=== PATIENT | female | born 1960 | race African-American/Black ===

== ENCOUNTER 2016-09-18 17:08 | Emergency (ER) | payer MEDICAID ==
[~2016-09-18] VITALS: Ht 167.6 cm; Wt 106.6 kg
--- NOTE | 2016-09-18 17:33 | Emergency Room Report ---
History of Present Illness General Chief Complaint: Dizziness Source: Patient, EMS Present Illness HPI Patient states that for the past 2 days she has been lightheaded. She states it this is worse when she stands up. She states that she's also had some chest pressure. She chest pain. She denies nausea or vomiting. She denies headache. She denies blurry vision. She denies abdominal pain. She denies recent illness. She denies fever or chills. She has no other complaints. She does admit to a one pack-a-day tobacco use and moderate alcohol use daily. She denies illicit drug use. Allergies: Coded Allergies: No Known Allergies (Unverified , 09/18/16) Patient History Past Medical History: see triage record, HTN Social History: Reports: alcohol use, smoking, Denies: drug use Reviewed Nursing Documentation: PMH: Agreed, PSxH: Agreed Nursing Documentation-PMH Past Medical History: No History, Except For Hx Hypertension: Yes Review of Systems All Other Systems: negative except mentioned in HPI Physical Exam Vital Signs Date Time Temp Pulse Resp B/P Pulse Ox O2 Delivery O2 Flow Rate FiO2 09/18/16 17:06 98.4 138 16 117/69 96 Room Air Sp02 EP Interpretation: reviewed, normal General Appearance: no apparent distress, alert, GCS 15, non-toxic Head: normocephalic, atraumatic Eyes: bilateral eye PERRL, bilateral eye normal inspection ENT: hearing grossly normal, normal pharynx, no angioedema, normal voice Neck: full range of motion, supple/symm/no masses Respiratory: chest non-tender, lungs clear, normal breath sounds, no respiratory distress, no retraction, no accessory muscle use, speaking full sentences Cardiovascular #1: no edema, tachycardia Gastrointestinal: normal bowel sounds, non tender, soft, non-distended, no guarding, no rebound Rectal: deferred Musculoskeletal: back normal, normal range of motion, non-tender Neurologic: alert, oriented x3, responsive, motor strength/tone normal, sensory intact, speech normal Psychiatric: judgement/insight normal, memory normal, mood/affect normal, no suicidal/homicidal ideation Skin: normal color, no rash, warm/dry, well hydrated Medical Decision Making Diagnostic Impression: Primary Impression: Lightheadedness Additional Impression: Tachycardia ER Course This patient presented with sinus tachycardia in the 130s. She was also lightheaded with presyncope. She's had multiple episodes of this over the past few days. I did only identify a sinus tachycardia. I was concerned about the tobacco history in combination with the lightheadedness and tachycardia so I did obtain a CT of the chest to assess for PE. There is no evidence of PE. There is findings consistent with chronic lung disease. The patient's other laboratory workup shows a slightly elevated creatinine. The patient did respond to aggressive IV fluids but when she went to go to the restroom she had lightheadedness and was symptomatic again. The patient feels unsafe going home. She will be admitted to telemetry for further evaluation, monitoring and treatment. Labs Test 09/18/16 17:17 09/18/16 18:45 White Blood Count 6.1 K/UL (4.8-10.8) Red Blood Count 4.81 M/UL (4.20-5.40) Hemoglobin 13.8 G/DL (12.0-16.0) Hematocrit 41.5 % (37.0-47.0) Mean Corpuscular Volume 86 FL (80-99) Mean Corpuscular Hemoglobin 28.6 PG (27.0-31.0) Mean Corpuscular Hemoglobin Concent 33.2 G/DL (32.0-36.0) Red Cell Distribution Width 15.5 % (11.6-14.8) Platelet Count 297 K/UL (150-450) Mean Platelet Volume 6.7 FL (6.5-10.1) Neutrophils (%) (Auto) 54.5 % (45.0-75.0) Lymphocytes (%) (Auto) 39.6 % (20.0-45.0) Monocytes (%) (Auto) 3.0 % (1.0-10.0) Eosinophils (%) (Auto) 1.1 % (0.0-3.0) Basophils (%) (Auto) 1.8 % (0.0-2.0) Prothrombin Time 9.1 SEC (9.30-11.50) Prothromb Time International Ratio 0.9 (0.9-1.1) Activated Partial Thromboplast Time 23 SEC (23-33) Sodium Level 141 mEQ/L (135-145) Potassium Level 4.4 mEQ/L (3.4-4.9) Chloride Level 102 mEQ/L (98-107) Carbon Dioxide Level 21 mEQ/L (20-30) Anion Gap 18 (5-15) Blood Urea Nitrogen 12 mg/dL (7-23) Creatinine 1.0 mg/dL (0.5-0.9) Estimat Glomerular Filtration Rate 57.1 mL/min (>60) Glucose Level 135 mg/dL (74-106) Calcium Level 9.5 mg/dL (8.6-10.2) Total Bilirubin < 0.2 mg/dL (0.0-1.2) Aspartate Amino Transf (AST/SGOT) 33 U/L (5-40) Alanine Aminotransferase (ALT/SGPT) 21 U/L (3-33) Alkaline Phosphatase 58 U/L (35-104) Total Creatine Kinase 77 U/L (26-140) Creatine Kinase MB < 1.5 ng/mL (< 3.8) Creatine Kinase MB Relative Index Troponin I < 0.30 ng/mL (<=0.30) Pro-B-Type Natriuretic Peptide 21 pg/mL (0-125) Total Protein 6.6 g/dL (6.6-8.7) Albumin 4.1 g/dL (3.5-5.2) Globulin 2.5 g/dL Albumin/Globulin Ratio 1.6 (1.0-2.7) Urine Color Pale yellow Urine Appearance Clear Urine pH 5 (4.5-8.0) Urine Specific [place] 1.020 (1.005-1.035) Urine Protein 1+ (NEGATIVE) Urine Glucose (UA) Negative (NEGATIVE) Urine Ketones 1+ (NEGATIVE) Urine Occult Blood 2+ (NEGATIVE) Urine Nitrite Negative (NEGATIVE) Urine Bilirubin Negative (NEGATIVE) Urine Urobilinogen Normal MG/DL (0.0-1.0) Urine Leukocyte Esterase 2+ (NEGATIVE) Urine RBC 0-2 /HPF (0 - 2) Urine WBC 2-4 /HPF (0 - 2) Urine Squamous Epithelial Cells Moderate /LPF (NONE/OCC) Urine Bacteria Few /HPF (NONE) Urine Opiates Screen Negative (NEGATIVE) Urine Barbiturates Screen Negative (NEGATIVE) Phencyclidine (PCP) Screen Negative (NEGATIVE) Urine Amphetamines Screen Negative (NEGATIVE) Urine Benzodiazepines Screen Negative (NEGATIVE) Urine Cocaine Screen Negative (NEGATIVE) Urine Marijuana (THC) Screen Negative (NEGATIVE) EKG Diagnostic Results Rate: tachycardiac Rhythm: other ST Segments: no acute changes Other Impression S. tachycardia Rhythm Strip Diag. Results EP Interpretation: yes Rate: 120's Rhythm: no PVC's, no ectopy, other Other Impression S.tachycardia Chest X-Ray Diagnostic Results Chest X-Ray Diagnostic Results : Chest X-Ray Ordered: Yes # of Views/Limited/Complete: 1 View Indication: Shortness of Breath Interpretation: no consolidation, no effusion, no pneumothorax, no acute cardiopulmonary disease Impression: No acute disease CT/MRI/US Diagnostic Results CT/MRI/US Diagnostic Results : Imaging Test Ordered: CT Chest Impression No PE. CLD. See official report. Last Vital Signs Date Time Temp Pulse Resp B/P Pulse Ox O2 Delivery O2 Flow Rate FiO2 09/18/16 17:06 98.4 138 16 117/69 96 Room Air Disposition: ADMITTED INPATIENT Condition: Stable PATEL GANT D.O. Sep 18, 2016 17:33
[2016-09-18 17:52] LABS: ALANINE AMINOTRANSFERASE 21 U/L (3-33); ALBUMIN/GLOBULIN RATIO 1.6 (1.0-2.7); ANION GAP 18 (5-15); ASPARTATE AMINO TRANSFERASE 33 U/L (5-40); BASOPHILS % (AUTO) 1.8 % (0.0-2.0); CALCIUM 9.5 mg/dL (8.6-10.2); CARBON DIOXIDE 21 mEQ/L (20-30); CHLORIDE 102 mEQ/L (98-107); EOSINOPHILS % (AUTO) 1.1 % (0.0-3.0); GLOMERULAR FILTRATION RATE 57.1 mL/min (>60); HEMOLYSIS 139; LYMPHOCYTES % (AUTO) 39.6 % (20.0-45.0); MEAN CORPUSCULAR HEMOGLOBIN 28.6 PG (27.0-31.0); MEAN CORPUSCULAR HGB CONC 33.2 G/DL (32.0-36.0); MEAN CORPUSCULAR VOLUME 86 FL (80-99); MEAN PLATELET VOLUME 6.7 FL (6.5-10.1); NEUTROPHILS % (AUTO) 54.5 % (45.0-75.0); PLATELET COUNT 297 K/UL (150-450); POTASSIUM 4.4 mEQ/L (3.4-4.9); RED BLOOD COUNT 4.81 M/UL (4.20-5.40); RED CELL DISTRIBUTION WIDTH 15.5 % (11.6-14.8); SODIUM 141 mEQ/L (135-145); TOTAL PROTEIN 6.6 g/dL (6.6-8.7); TROPONIN I < 0.30 ng/mL (<=0.30); WHITE BLOOD COUNT 6.1 K/UL (4.8-10.8)
[2016-09-18 17:57] LABS: INR 0.9 (0.9-1.1); PROTHROMBIN TIME 9.1 SEC (9.30-11.50)
[2016-09-18 18:00] VITALS: BP 141/86
[2016-09-18 18:03] LABS: CKMB < 1.5 ng/mL (< 3.8)
[2016-09-18] MEDS ORDERED: OPSUMIT10 MG PO (18:31)
[2016-09-18] MEDS ORDERED: ADEMPAS2.5 MG PO (18:31)
[2016-09-18 18:55] LABS: APPEARANCE,URINE CLEAR; KETONES,URINE 1+ (NEGATIVE); LEUKOCYTE ESTERASE ,URINE 2+ (NEGATIVE); NITRITE,URINE NEGATIVE (NEGATIVE); PH,URINE 5 (4.5-8.0); PROTEIN,URINE 1+ (NEGATIVE); UROBILINOGEN,URINE NORMAL MG/DL (0.0-1.0)
[2016-09-18 19:22] LABS: BACTERIA,URINE FEW /HPF; RBC,URINE 0-2 /HPF (0 - 2); SQUAMOUS EPITHELIAL CELL,UR MODERATE /LPF (NONE/OCC)
[2016-09-18 19:45] VITALS: BP 133/59
[2016-09-18 21:48] VITALS: BP 116/66
[2016-09-18 23:15] VITALS: BP 116/66
--- NOTE | 2016-09-19 08:54 | Diagnostic Imaging Report ---
Indication: Chest pain Technique: Continuous helical transaxial imaging of the chest was obtained from the thoracic inlet to the upper abdomen during rapid intravenous contrast administration. Arterial phase of enhancement obtained. Coronal 2-D reformats were also obtained and maximum intensity projection images in multiple planes. Study obtained in a Siemens sensation [address] Total Dose length Product (DLP): [address] Dose Index Volume (CTDIvol): 12.6, 37.9, 44.8 mGy Comparison: None Findings: The pulmonary artery is well opacified and shows no filling defects. The lungs are clear. There is no adenopathy, pleural or pericardial effusions are identified. The aortic dissection or aneurysm identified within the chest. Visualized part of the upper abdomen is unremarkable. Upper abdomen is unremarkable as visualized. The heart is enlarged. Impression: No evidence of pulmonary embolus. Cardiomegaly The CT scanner at [facility] is accredited by the [employer] and the scans are performed using dose optimization techniques as appropriate to a performed exam including Automatic Exposure control.
--- NOTE | 2016-09-19 09:04 | Diagnostic Imaging Report ---
Indication: Headache and dizziness Technique: Contiguous 5 mm thick transaxial imaging of the head obtained in a Siemens Sensation [address] scanner. Soft tissue and bone windows generated. Total Dose length Product (DLP): [address] Dose Index Volume (CTDIvol): 70.38 mGy Comparison: none Findings: There is mild prominence of the cerebral sulci consistent with atrophy particularly within the frontal lobes. . There is no midline shift, edema, acute hemorrhage, mass effect, hydrocephalus or abnormal extra-axial fluid collections. Bones and extra osseous soft tissues are unremarkable. Impression: No acute intracranial bleed, mass effect or edema. Mild bifrontal atrophy of the brain. The CT scanner at [facility] is accredited by the [employer] and the scans are performed using dose optimization techniques as appropriate to a performed exam including Automatic Exposure control.
--- NOTE | 2016-09-19 09:24 | Diagnostic Imaging Report ---
Indication: Dyspnea Comparison: None A single view chest radiograph was obtained. Findings: Cardiomediastinal appearance is within normal limits for age. Pulmonary vascularity is appropriate. The diaphragmatic contour is smooth and costophrenic angles are sharp. No pleural effusions are identified. The bones are unremarkable. Impression: No acute findings
== END 2016-09-18 22:55 | disposition short-term general hospital (02) ==
LOC: EDBD 17:08 → EMR 17:34 → EDBEDREQ 20:28 → EMR 22:55
DX: R42 Dizziness and giddiness (principal); R00.0 Tachycardia, unspecified; R07.9 Chest pain, unspecified; F17.210 Nicotine dependence, cigarettes, uncomplicated; I10 Essential (primary) hypertension; R51 Headache; G31.9 Degenerative disease of nervous system, unspecified; I51.7 Cardiomegaly
CPT/HCPCS: 36415; 70450; 71010; 71275; 80053; 80300; 81003; 82550; 82553; 82962; 83880; 84484; 85025; 85610; 85730; 93005; 96374; 96375; 99285; Q9967